=== PATIENT | female | born 1975 | race Caucasian/White ===

== ENCOUNTER 2019-04-29 18:51 | Emergency (ER) | payer OTHER ==
[~2019-04-29] VITALS: Ht 147.3 cm; Wt 73.9 kg
[2019-04-29 19:08] VITALS: BP 131/83
--- NOTE | 2019-04-29 19:14 | NUR ---
PT AMBULATED TO LOBBY. PROVIDING URINE.
--- NOTE | 2019-04-29 19:31 | NUR ---
PT TAKEN TO BED 6
--- NOTE | 2019-04-29 19:37 | NUR ---
PT HAS SCHEDULED D&C ON 05/01/19
--- NOTE | 2019-04-29 19:37 | NUR ---
PT CAME TO ER C/O OF SUPRAPUBIC CRAMPING SINCE TODAY. PAIN LEVEL 8/10, DOES NOT RADIATE. PT IS 15 WEEKS . PT WAS RECEIVING CARE OF 2 WEEKS AGO AND TAKING VITAMINS. PER PT SHE WENT TO [place] ON 04/26/19 AND WAS TOLD THEY DID NOT FIND FHT. PT DENIES VAGINAL BLEEDING AND VAGINAL DISCHARGE. NO N/V/D. NO MED HX. SAFETY MEASURES IN PLACE. WAITING FOR ERMD TO EVALUATE PT.
--- NOTE | 2019-04-29 19:54 | NUR ---
ULTRASOUND AT BEDSIDE
--- NOTE | 2019-04-29 20:14 | NUR ---
FAMILY AT BEDSIDE. PT RESTING IN BED ON HER CELL PHONE.
--- NOTE | 2019-04-29 20:15 | NUR ---
Annie mancia in ED - 04/29/19 at 2016 by KATHYA ROME AT BEDSIDE
--- NOTE | 2019-04-29 20:16 | NUR ---
DR BARKER AT BEDSIDE
[2019-04-29 20:47] VITALS: BP 131/83
--- NOTE | 2019-04-29 20:47 | NUR ---
Patient discharged with v/s stable. Written and verbal after care instructions given and explained. Patient alert, oriented and verbalized understanding of instructions. Ambulatory with steady gait. All questions addressed prior to discharge. ID band removed. Patient advised to follow up with PMD. Rx of MOTRIN WAS given. Patient educated on indication of medication including possible reaction and side effects. Opportunity to ask questions provided and answered.
== END 2019-04-29 20:47 | disposition home or self-care (01) ==
LOC: MED 18:51
DX: O26.891 Other specified pregnancy related conditions, first trimester (principal); R10.30 Lower abdominal pain, unspecified; Z3A.13 13 weeks gestation of pregnancy
CPT/HCPCS: 76801; 99284; Q0092